=== PATIENT | male | born 1995 | race Caucasian/White ===

== ENCOUNTER 2018-11-16 18:20 | Emergency (ER) | payer MEDICAID, SELFPAY ==
[2018-11-16 18:25] VITALS: BP 120/56; PULSE 100; TEMP 37.1; O2SAT 93
[2018-11-16 18:34] VITALS: RESP 4
[2018-11-16] MEDS: Albuterol/Ipratropium 3 ML UPD VIAL (18:34)
--- NOTE | 2018-11-16 18:34 | DI.RAD_ITS ---
SYMPTOM/DIAGNOSIS: SMOKER, SOB PA AND LATERAL CHEST: The heart is not enlarged. The lungs are clear. No pleural effusion is seen. Apparent diaphragmatic contour abnormality anteriorly and medially on the right appears unchanged and is unlikely to represent pathology. CONCLUSION: Negative examination of the chest. No change from 02/19/16.
--- NOTE | 2018-11-16 18:34 | W.ED.GENAD ---
Discharge Plan Disposition Patient Disposition: HOME Condition: Improving Discharge Details Chief Complaint: RespSymp Clinical Impression: Acute bronchospasm Primary Care Provider: None,None ED Provider: Tom Vazquez Home Meds and New Rx's Prescriptions: New prednisone 20 mg tablet 40 mg PO DAILY 5 Days Qty: 10 RF: 0 No Action prednisone 20 MG tablet 60 mg PO Q6H PRN PRN5 Days RF: 0 Discharge Instructions Instructions: Bronchospasm (ED) Additional Instructions: May use the provided albuterol 2 puffs every 4 hours if needed for shortness of breath. Continue efforts to decrease smoking. Return if you develop a fever, change of sputum to yellow color, or any other acute concerns. Medical Decision Making 23-year-old male smoker presents with cough and shortness of breath today. He is afebrile, somehat anxious, and exam reveals bilateral end expiratory wheeze with oxygenation of 93% on room air. Differential diagnosis includes bronchitis, bronchospasm, patient has had a history of serious pneumonia in the past. Given DuoNeb updraft, prednisone by mouth, referred for chest x-ray and screening EKG. Chest x-ray negative for acute process. Patient significantly improved with DuoNeb. I will provide him with a burst of steroids, we will provide him with an albuterol inhaler tonight. He will continue his efforts to decrease use of tobacco. He is stable for discharge to home. ECG Data Attestation: I personally reviewed and interpreted this ECG (s) as follows: Interpretation: Normal sinus rhythm with a rate of 78, QRS is narrow, right bundle branch block pattern with J-point elevation present. HPI General Mode of arrival: ambulatory. Date/Time Provider Initiated Documentation: 11/16/18 18:24. Limitations to Documentation: no limitations. Information obtained by: patient. History of Present Illness 23 year old M presents to the emergency department with the chief complaint of Shortness of breath and cough today, described as moderate and similar to prior episodes, Quality is described as dull and constant, and is localized to the chest. Patient reports no radiation. Patient started experiencing this hour(s) and it has been constant. No relieving factors improve symptom(s), No exacerbating factors reported . Patient notes cough and shortness of breath; denies fever/chills. Patient did receive the following treatments prior to arrival, none Related Data Home Medications Medication Instructions Recorded Confirmed prednisone 60 mg PO Q6H PRN PRN 5 Days tab 07/24/17 prednisone 40 mg PO DAILY 5 Days #10 tab 11/16/18 Previous Rx's Medication Instructions Recorded prednisone 60 mg PO Q6H PRN PRN 5 Days tab 07/24/17 prednisone 40 mg PO DAILY 5 Days #10 tab 11/16/18 Allergies Allergy/AdvReac Type Severity Reaction Status Date / Time No Known Allergies Allergy Unverified 07/24/17 07:04 General Stated Complaint: RespSymp HEATH: 3 Review of Systems Review of Systems No known sick contacts or travel. Continues to smoke. 6 systems reviewed and otherwise - [facility] Social History Smoking/Tobacco Use Status: Current every day Tobacco Type: cigarettes Alcohol Intake: current Alcohol Intake frequency: a few times a month Drug use: Daily Substance use type: marijuana Do you feel safe at home: Yes Do you feel safe in your relationship?: Yes Exam Narrative Exam Narrative: GEN: awake, alert. Pleasant, well groomed, interactive. HEAD: Normocephalic, atraumatic ENT: Mucous membranes moist, oropharynx unremarkable, External ear exam unremarkable EYES: PERRL, EOMI NECK: Full ROM, no KARYNA, no menigismus CHEST/RESP: Nontender, bilateral end expiratory wheeze CARDIOVASCULAR: Borderline tachycardia at time of exam, RRR, no murmur, rub nori. 2+ Rad pulse bilateral ABDOMEN: Soft, nontender, no mass. +Bowel sounds EXT: Full ROM, no edema, no rash Neuro: Grossly normal neurologic exam, conversant, interactive. Psych: Speech fluent, thoughts congruent, affect slightly anxious Course Vital Signs Temperature 37.1 C 11/16/18 18:25 Pulse 100 H 11/16/18 18:25 Blood Pressure 120/56 L 11/16/18 18:25 Pulse Oximetry 93 L 11/16/18 18:25 Temperature 37.1 C 11/16/18 18:25 Temperature Source Skin 11/16/18 18:25 Pulse 100 H 11/16/18 18:25 Blood Pressure 120/56 L 11/16/18 18:25 Pulse Oximetry 93 L 11/16/18 18:25 Oxygen Delivery Method Room Air 11/16/18 18:25 Oxygen Flow Rate 0 06/03/19 18:25 Pain Level 3 11/16/18 18:25
--- NOTE | 2018-11-16 18:37 | ED.GENADUL_ITS ---
Discharge Plan Disposition Patient Disposition: HOME Condition: Improving Discharge Details Chief Complaint: RespSymp Clinical Impression: Acute bronchospasm Primary Care Provider: None,None ED Provider: Tom Vazquez Home Meds and New Rx's Prescriptions: New prednisone 20 mg tablet 40 mg PO DAILY 5 Days Qty: 10 RF: 0 No Action prednisone 20 MG tablet 60 mg PO Q6H PRN PRN5 Days RF: 0 Discharge Instructions Instructions: Bronchospasm (ED) Additional Instructions: May use the provided albuterol 2 puffs every 4 hours if needed for shortness of breath. Continue efforts to decrease smoking. Return if you develop a fever, change of sputum to yellow color, or any other acute concerns. Medical Decision Making 23-year-old male smoker presents with cough and shortness of breath today. He is afebrile, somehat anxious, and exam reveals bilateral end expiratory wheeze with oxygenation of 93% on room air. Differential diagnosis includes bronchitis, bronchospasm, patient has had a history of serious pneumonia in the past. Given DuoNeb updraft, prednisone by mouth, referred for chest x-ray and screening EKG. Chest x-ray negative for acute process. Patient significantly improved with DuoNeb. I will provide him with a burst of steroids, we will provide him with an albuterol inhaler tonight. He will continue his efforts to decrease use of tobacco. He is stable for discharge to home. ECG Data Attestation: I personally reviewed and interpreted this ECG (s) as follows: Interpretation: Normal sinus rhythm with a rate of 78, QRS is narrow, right bundle branch block pattern with J-point elevation present. HPI General Mode of arrival: ambulatory . Date/Time Provider Initiated Documentation: 11/16/18 18:24 . Limitations to Documentation: no limitations . Information obtained by: patient . History of Present Illness 23 year old M presents to the emergency department with the chief complaint of Shortness of breath and cough today, described as moderate and similar to prior episodes, Quality is described as dull and constant, and is localized to the chest. Patient reports no radiation. Patient started experiencing this hour(s) and it has been constant. No relieving factors improve symptom(s), No exacerbating factors reported . Patient notes cough and shortness of breath; denies fever/chills. Patient did receive the following treatments prior to arrival, none Related Data Home Medications Medication Instructions Recorded Confirmed prednisone 60 mg PO Q6H PRN PRN 5 Days tab 07/24/17 prednisone 40 mg PO DAILY 5 Days #10 tab 11/16/18 Previous Rx's Medication Instructions Recorded prednisone 60 mg PO Q6H PRN PRN 5 Days tab 07/24/17 prednisone 40 mg PO DAILY 5 Days #10 tab 11/16/18 Allergies Allergy/AdvReac Type Severity Reaction Status Date / Time No Known Allergies Allergy Unverified 07/24/17 07:04 General Stated Complaint: RespSymp HEATH: 3 Review of Systems Review of Systems No known sick contacts or travel. Continues to smoke. 6 systems reviewed and otherwise - [facility] Social History Smoking/Tobacco Use Status: Current every day Tobacco Type: cigarettes Alcohol Intake: current Alcohol Intake frequency: a few times a month Drug use: Daily Substance use type: marijuana Do you feel safe at home: Yes Do you feel safe in your relationship?: Yes Exam Narrative Exam Narrative: GEN: awake, alert. Pleasant, well groomed, interactive. HEAD: Normocephalic, atraumatic ENT: Mucous membranes moist, oropharynx unremarkable, External ear exam unremarkable EYES: PERRL, EOMI NECK: Full ROM, no KARYNA, no menigismus CHEST/RESP: Nontender, bilateral end expiratory wheeze CARDIOVASCULAR: Borderline tachycardia at time of exam, RRR, no murmur, rub nori. 2+ Rad pulse bilateral ABDOMEN: Soft, nontender, no mass. +Bowel sounds EXT: Full ROM, no edema, no rash Neuro: Grossly normal neurologic exam, conversant, interactive. Psych: Speech fluent, thoughts congruent, affect slightly anxious Course Vital Signs Temperature 37.1 C 11/16/18 18:25 Pulse 100 H 11/16/18 18:25 Blood Pressure 120/56 L 11/16/18 18:25 Pulse Oximetry 93 L 11/16/18 18:25 Temperature 37.1 C 11/16/18 18:25 Temperature Source Skin 11/16/18 18:25 Pulse 100 H 11/16/18 18:25 Blood Pressure 120/56 L 11/16/18 18:25 Pulse Oximetry 93 L 11/16/18 18:25 Oxygen Delivery Method Room Air 11/16/18 18:25 Oxygen Flow Rate 0 06/03/19 18:25 Pain Level 3 11/16/18 18:25
[2018-11-16] MEDS: predniSONE 20 MG TAB 60 MG PO (18:41)
[2018-11-16 18:49] VITALS: RESP 1
--- NOTE | 2018-11-16 19:00 | DI.VRAD_ITS ---
EXAM: XR Chest, 2 Views EXAM DATE/TIME: 11/16/2018 6:35 PM CLINICAL HISTORY: 23 years old, male; Signs and symptoms; Shortness of breath; Patient HX: Smoker, SOB TECHNIQUE: Imaging protocol: XR of the chest, 2 views. COMPARISON: CR CHEST 2 VIEWS PA,LAT 02/19/2016 1:09 PM FINDINGS: Lungs: Redemonstrated is focal opacity within the medial, anterior inferior right hemithorax, likely prominent pericardial fat versus eventration of the hemidiaphragm. Lungs are otherwise adequately inflated and symmetric without focal consolidation. Pleural space: No pleural effusion. No pneumothorax. Heart/Mediastinum: Cardiomediastinal contours within normal limits. Bones/joints: No acute osseous finding. Soft tissues: No focal soft tissue abnormailty. IMPRESSION: No acute cardiopulmonary finding. Stable chest radiograph. Dictated and Authenticated by: Jarrod Hernandez MD. Ordering:MAGNOLIA Santos MD
[2018-11-16 19:28] VITALS: BP 120/56; PULSE 98; RESP 20; TEMP 37.1; O2SAT 96
[2018-11-16] MEDS: Albuterol HFA 8 GM 60 PUFF INH IH (19:28)
== END 2018-11-16 19:30 | disposition home or self-care (01) ==
PROVIDERS: Emergency Provider Emergency Medicine
DX: J98.01 Acute bronchospasm (principal); F17.210 Nicotine dependence, cigarettes, uncomplicated
CPT/HCPCS: 93005; 94640; 99284; 71046; 93010; J7512; J7620

== ENCOUNTER 2019-06-29 06:43 | Emergency (ER) | payer MEDICAID, SELFPAY ==
[2019-06-29 06:46] VITALS: BP 131/65; PULSE 53; RESP 16; TEMP 36.4; O2SAT 96
--- NOTE | 2019-06-29 06:56 | ED.GENADUL_ITS ---
Discharge Plan Disposition Patient Disposition: HOME Condition: Stable Discharge Details Chief Complaint: Nausea/Vomit/Diar Clinical Impression: Nausea & vomiting Primary Care Provider: None,None ED Provider: Selwyn Teran Home Meds and New Rx's Prescriptions: New ondansetron 4 mg tablet,disintegrating 4 mg PO Q8H PRN (Reason: nausea and vomiting) Qty: 20 RF: 0 Discharge Instructions Instructions: Acute Nausea and Vomiting (ED) Stand Alone Forms: Work Release Medical Decision Making 24 yo male who denies chornic medical problems comes in with nausa and diarrhea and vomit since 3 am and states family had similar symptoms. Has noted abdominal cramping as well, no sharp or severe pain, denies drug use other than marijuana use and states he did take awarm shower that helped his symptoms. He is inno distress on exam with soft nontender abdomen. NO distrention. Suspect gastroenteritis given close contacts, will tx with zofran. Given no abdominal tenderness and no evidence of dehydration do not feel labs or imaging indicated. will d/c with return precautions given Differential Diagnosis Differential Diagnosis: cannabinoid hyperesmesis, gastroenteritis, food illness HPI General Mode of arrival: ambulatory . Date/Time Provider Initiated Documentation: 06/29/19 06:51 . Limitations to Documentation: no limitations . Information obtained by: patient . History of Present Illness 24 year old M presents to the emergency department with the chief complaint of nausea, desc ribed as moderate, Patient reports no radiation. Patient started experiencing this hour(s) (5) and it has been constant. No relieving factors improve symptom(s), No exacerbating factors reported . Patient did receive the following treatments prior to arrival, none Related Data Home Medications Medication Instructions Recorded Confirmed ondansetron 4 mg PO Q8H PRN #20 tab 06/29/19 Previous Rx's Medication Instructions Recorded ondansetron 4 mg PO Q8H PRN #20 tab 06/29/19 Allergies Allergy/AdvReac Type Severity Reaction Status Date / Time No Known Allergies Allergy Unverified 06/29/19 06:48 General Stated Complaint: Nausea/Vomit/Diar HEATH: 4 Review of Systems All systems reviewed & are unremarkable except as noted in HPI and below Constitutional Constitutional: Denies chills, Denies fever(s) and Denies weakness ENT Ears, Nose, Mouth, and Throat: Denies change in voice Cardiovascular Cardiovascular: Denies chest pain and Denies dyspnea Respiratory Respiratory: Denies cough and Denies dyspnea Musculoskeletal Musculoskeletal: Denies joint swelling Neurologic Neurologic: Denies weakness [facility] Social History Smoking/Tobacco Use Status: Current every day Tobacco Type: cigarettes Alcohol Intake: current Alcohol Intake frequency: a few times a month Drug use: Daily Substance use type: marijuana Do you feel safe at home: Yes Do you feel safe in your relationship?: Yes Exam Const General: no acute distress Orientation: alert HENMT Head: normal to inspection Ears: external ears normal General nose exam: external nose normal Mouth: moist mucous membranes Eyes General: appearance normal, both eyes and all related structures Neck Neck: normal visual inspection Resp Effort & Inspection: normal respiratory effort and able to speak in complete sentences Cardio Rate: regular rate GI Palpation: soft and nontender Skin General skin exam: no rashes or lesions noted Neuro General: alert and oriented x3 Extrem General: normal to inspection Psych Mental Status: mental status grossly normal Course Vital Signs Vital signs: Vital Signs Temperature 36.4 C L 06/29/19 06:46 Pulse 53 L 06/29/19 06:46 Respiratory Rate 16 06/29/19 06:46 Blood Pressure 131/65 06/29/19 06:46 Pulse Oximetry 96 06/29/19 06:46 Temperature 36.4 C L 06/29/19 06:46 Temperature Source Skin 06/29/19 06:46 Pulse 53 L 06/29/19 06:46 Respiratory Rate 16 06/29/19 06:46 Respiratory Effort Non-Labored 06/29/19 06:49 Blood Pressure 131/65 06/29/19 06:46 Blood Pressure Position Sitting 06/29/19 06:46 Pulse Oximetry 96 06/29/19 06:46 Oxygen Delivery Method Room Air 06/29/19 06:46 Oxygen Flow Rate 0 06/29/19 06:46 Pain Level 7 06/29/19 06:46
[2019-06-29 07:06] VITALS: BP 131/65; PULSE 53; RESP 16; TEMP 36.4; O2SAT 96
[2019-06-29] MEDS: Ondansetron O.D.T. 4 MG TABEF PO (07:06)
== END 2019-06-29 07:08 | disposition home or self-care (01) ==
LOC: ER 07:08
PROVIDERS: Emergency Provider Emergency Medicine
DX: R10.84 Generalized abdominal pain (principal); R11.2 Nausea with vomiting, unspecified
CPT/HCPCS: 99283

== ENCOUNTER 2022-04-09 09:59 | Emergency (ER) | payer MEDICAID, SELFPAY ==
[2022-04-09 10:01] VITALS: BP 123/79; PULSE 89; RESP 18; TEMP 37.8; O2SAT 97
--- NOTE | 2022-04-09 10:14 | ED.GENADUL_ITS ---
Discharge Plan Disposition Patient Disposition: HOME Condition: Stable Discharge Details Clinical Impression: COVID Primary Care Provider: None,None ED Provider: Mansoor Ordoñez Home Meds and New Rx's Prescriptions: Continued ondansetron 4 mg tablet,disintegrating 4 mg PO Q8H PRN (Reason: nausea and vomiting) Qty: 20 0RF Discharge Instructions Instructions: COVID-19 (Coronavirus Disease 2019) (ED) Additional Instructions: COVID positive. Plenty of fluids to avoid dehydration. [id number] medications as directed for symptomatic control. Please watch for new or w orsening symptoms and return to the ER for any concerns. I recommend quarantining for a minimum of 5 days and wearing a mask for minimum of 10 days. Medical Decision Making 26-year-old gentleman, denies significant past medical history, presents with what appears to be myalgias that began late last night early this morning, otherwise asymptomatic. Has not taken any evmc-mde-pvolowv medications for his symptoms. Clinically he appears well, nontoxic. Temperature of 37.8. Concern for COVID, flu. Will obtain Fluvid, establish IV access, give fluid, Toradol, obtain routine screening laboratory values Laboratory values reveal positive COVID, otherwise unremarkable. Upon reevaluation patient reports improvement with the IV Toradol. He is otherwise young and healthy, he is not vaccinated, we discussed Paxlovid but at this time there is no clear indication to initiate this inpatient would rather not take any medication that he does not need. We discussed conservative measures and treating [id number] Standard discharge and return precautions were provided. Patient understands, is agreeable to this plan, and has no additional questions or concerns upon discharge. This documentation was generated using [employer] system, please disregard any oddities of phrase or misspellings. Medical Records Medical records reviewed: Yes I reviewed the patient's medical records. Lab Data Lab results reviewed: Yes I reviewed the patient's lab results. Labs: Laboratory Tests Range/Units 04/09/22 04/09/22 04/09/22 10:35 10:35 10:35 WBC (4.4-10.8) 10^3/uL 5.32 RBC (4.36-5.78) 10^6/uL 4.70 Hgb (13.5-17.5) g/dL 13.5 Hct (40.0-50.0) % 40.4 MCV (80-95) fL 86 MCH (27.0-33.0) pg 28.7 MCHC (32.0-36.0) % 33.4 RDW (11.8-14.1) % 13.6 Plt Count (130-400) 10^3/uL 177 MPV (8.0-11.0) fL 10.8 Immature Gran % 0.2 Neutrophils % 79.4 Lymphocytes % 6.8 Monocytes % 12.6 Eosinophils % 0.4 Basophils % 0.6 Nucleated RBC % (0.0-0.3) % 0.0 Absolute Neutrophils (1.2-6.7) 10^3/uL 4.23 Absolute Lymphocytes (1.2-3.4) 10^3/uL 0.36 L Absolute Monocytes (0.1-0.8) 10^3/uL 0.67 Absolute Eosinophils (0.0-0.7) 10^3/uL 0.02 Absolute Basophils (0.0-0.2) 10^3/uL 0.03 Sodium (136-145) mmol/L 138 Potassium (3.5-5.1) mmol/L 3.6 Chloride (98-107) mmol/L 101 Carbon Dioxide (21.0-32.0) mmol/L 28.2 Anion Gap (3-11) mmol/L 8.8 BUN (7-18) mg/dL 7 Creatinine (0.70-1.30) mg/dL 0.8 Est GFR (CKD-EPI 2020) (mL/min/1.73m2) 126.74 Glucose (74-106) mg/dL 99 Calcium (8.5-10.1) mg/dL 8.9 Total Bilirubin (0.2-1.0) mg/dL 0.4 AST (15-37) U/L 15 ALT (16-63) U/L 16 Alkaline Phosphatase (46-116) U/L 85 Total Protein (6.4-8.2) g/dL 7.5 Albumin (3.4-5.0) g/dL 4.0 Lipase (73-393) U/L 36 COVID-19 Source Nasopharynx SARS-CoV-2 (PCR) (Negative) Positive A Influenza Type A (PCR) (Negative) Negative Influenza Type B (PCR) (Negative) Negative RSV (PCR) (Negative) Negative HPI General Mode of arrival: ambulatory . Date/Time Provider Initiated Documentation: 04/09/22 10:13 . Limitations to Documentation: no limitations . Information obtained by: patient . HPI Narrative: This is a 26-year-old gentleman, denies significant past medical history, reports waking up early this morning with what he describes as body aches, worse in his lower legs, feels like he is being struck with hammers, pain 7 out of 10. Denies any other symptoms, has not taken any zhnn-qcp-ajupzow medication for his symptoms. Denies recent illness or trauma, headache, fever, stiff neck, chest pain, shortness of breath, cough, abdominal pain, nausea, vomiting. Denies change in bowel or bladder function. Related Data Home Medications Medication Instructions Recorded Confirmed ondansetron 4 mg disintegrating 4 mg PO Q8H PRN nausea and 06/29/19 tablet vomiting #20 tabs Previous Rx's Medication Instructions Recorded ondansetron 4 mg disintegrating 4 mg PO Q8H PRN nausea and 06/29/19 tablet vomiting #20 tabs Allergies Allergy/AdvReac Type Severity Reaction Status Date / Time No Known Allergies Allergy Unverified 06/29/19 06:48 General Stated Complaint: GenMedical HEATH: 3 Review of Systems Constitutional Constitutional: Denies fatigue, Denies fever(s), Denies headache(s) and Denies weakness ENT Ears, Nose, Mouth, and Throat: Denies headache(s) and Denies neck pain Cardiovascular Cardiovascular: Denies chest pain and Denies dyspnea Respiratory Respiratory: Denies cough and Denies dyspnea Gastrointestinal Gastrointestinal: Denies abdominal pain, Denies nausea and Denies vomiting Musculoskeletal Musculoskeletal: Reports back pain, Reports myalgias, Denies neck pain, Denies numbness and Denies tingling Integumentary/Breasts Skin/Breast: Denies rash Neurologic Neurologic: Denies headache(s), Denies numbness, Denies tingling and Denies weakness Endocrine Endocrine: Denies fatigue PFSH All Active Problems (Updated 04/09/22 @ 11:42 by CARI Flores) COVID (Acute) Social History Smoking/Tobacco Use Status: Current every day Tobacco Type: cigarettes Smoking risk assessment performed?: Yes Alcohol Intake: current Alcohol Intake frequency: a few times a month Drug use: Daily Substance use type: marijuana Do you feel safe at home: Yes Do you feel safe in your relationship?: Yes Exam Const General: cooperative, healthy appearing, comfortable and no acute distress Orientation: alert and awake [facility] Head: normal to inspection, normocephalic and atraumatic Face and sinus: normal facial exam Mouth: moist mucous membranes Throat: posterior oropharynx normal Eyes General: appearance normal, both eyes and all related structures Conjunctivae: conjunctivae normal Neck Neck: normal visual inspection, full ROM, no meningeal signs, trachea midline and supple Resp Effort & Inspection: normal respiratory effort and able to speak in complete sentences Auscultation: clear to auscultation bilaterally Cardio Rate: regular rate Rhythm: regular rhythm GI Palpation: soft and nontender Back/Spine/Pelvis Back: no CVA tenderness and back tenderness (Diffuse, mild) Skin General skin exam: no rashes or lesions noted Neuro General: patient alert, patient awake, moves all extremities and no focal motor deficits Cognition: normal cognition Speech: speech normal Gait: normal gait Motor: muscle tone normal throughout Sensory Exam: no sensory deficits noted Extrem General: normal to inspection, full ROM, capillary refill normal, no pedal edema and no calf tenderness Psych Appearance: grossly normal Mental Status: mental status grossly normal Course Vital Signs Vital signs: Vital Signs Temperature 37.8 C H 04/09/22 10:01 Pulse 89 04/09/22 10:01 Respiratory Rate 18 04/09/22 10:01 Blood Pressure 123/79 04/09/22 10:01 Pulse Oximetry 97 04/09/22 10:01 Temperature 37.8 C H 04/09/22 10:01 Pulse 89 04/09/22 10:01 Respiratory Rate 18 04/09/22 10:01 Respiratory Effort 04/09/22 10:12 Respiratory Depth Normal 04/09/22 10:12 Respiratory Pattern Normal 04/09/22 10:12 Blood Pressure 123/79 04/09/22 10:01 Blood Pressure Position Sitting 04/09/22 10:01 Pulse Oximetry 97 04/09/22 10:01 Oxygen Delivery Method Room Air 04/09/22 10:01 Oxygen Flow Rate 0 04/09/22 10:01
[2022-04-09 10:43] LABS: Abs Immature Grans 0.01 10^3/uL (0.0-0.06); Absolute Basophil Count 0.03 10^3/uL (0.0-0.2); Absolute Eosinophil Count 0.02 10^3/uL (0.0-0.7); Absolute Lymphocyte Count 0.36 10^3/uL (1.2-3.4); Absolute Monocyte Count 0.67 10^3/uL (0.1-0.8); Absolute Neutrophil Count 4.23 10^3/uL (1.2-6.7); Basophils % 0.6; Eosinophils % 0.4; HCT 40.4 % (40.0-50.0); HGB 13.5 g/dL (13.5-17.5); Immature Grans % 0.2; Lymphocytes % 6.8; MCH 28.7 pg (27.0-33.0); MCHC 33.4 % (32.0-36.0); MCV 86 fL (80-95); MPV 10.8 fL (8.0-11.0); Monocytes % 12.6; Neutrophils % 79.4; Platelet Count 177 10^3/uL (130-400); RDW 13.6 % (11.8-14.1); RDW-SD 42.9 fL; WBC 5.32 10^3/uL (4.4-10.8)
[2022-04-09 11:03] LABS: ALT 16 U/L (16-63); AST 15 U/L (15-37); Alkaline Phosphatase 85 U/L (46-116); Anion Gap 8.8 mmol/L (3-11); BUN 7 mg/dL (7-18); Bilirubin, Total 0.4 mg/dL (0.2-1.0); CO2 28.2 mmol/L (21.0-32.0); CREATININE 0.8 mg/dL (0.70-1.30); Calcium 8.9 mg/dL (8.5-10.1); Chloride 101 mmol/L (98-107); Estimated GFR 126.74 (mL/min/1.73m2); Glucose 99 mg/dL (74-106); Lipase 36 U/L (73-393); Potassium 3.6 mmol/L (3.5-5.1); Sodium 138 mmol/L (136-145); Total Protein 7.5 g/dL (6.4-8.2)
[2022-04-09 11:21] LABS: Influenza A PCR Negative (Negative); Influenza B PCR Negative (Negative); RSV PCR Negative (Negative)
[2022-04-09 11:26] LABS: COVID-19 PCR Positive (Negative); Source Nasopharynx
== END 2022-04-09 12:01 | disposition home or self-care (01) ==
PROVIDERS: Emergency Provider Physician Assistant
DX: U07.1 COVID-19 (principal); Z28.310 Unvaccinated for COVID-19
CPT/HCPCS: 80053; 83690; 87637; 96374; 99284; 85025